=== PATIENT | male | born 1965 | race Two or more races ===

== ENCOUNTER 2018-06-20 14:24 | Outpatient (CLI) | payer OTHER | END 2018-06-20 15:08 | disposition home or self-care (01) | LOC: RAD 14:24 → EDSEX 14:24 → RAD 15:08 | DX: I10 Essential (primary) hypertension (principal) ==

== ENCOUNTER → 2018-06-26 | Outpatient (CLI) | payer OTHER | END | disposition home or self-care (01) | LOC: NUCLEAR 10:34 | DX: I20.1 Angina pectoris with documented spasm (principal) ==